=== PATIENT | male | born 1960 | race Caucasian/White ===

== ENCOUNTER 2020-05-20 20:40 | Emergency (ER) | payer OTHER, SELFPAY ==
--- NOTE | ~2020-05-20 | CT_ITS ---
EXAMINATION: CTA chest PE abdomen pel DATE: 05/20/2020 23:00 INDICATION: Chest pain. Right flank pain. TECHNIQUE: Computed tomography angiography (CTA) of the chest was performed with 100 mL Omnipaque-350 intravenous contrast timed to evaluate the pulmonary arteries. Coronal maximum intensity projection 3D-reconstructions were created by the technologist. Computed tomography (CT) of the abdomen and pelv is was performed with intravenous contrast. Automated exposure control and iterative reconstruction t echnique were employed. The dose-length product was 1848.84 mGy-cm. COMPARISON: None. FINDINGS: CTA chest: There is mild atelectasis bilaterally with a dependent predominance. There is a small righ t pleural effusion. There is a trace left pleural effusion. Calcified pulmonary nodules are consisten t with old granulomatous disease. The heart size is normal. No pericardial effusion. There are is an acute embolus in anterolateral basal segment right lower lobe. There is an acute embolus in basilar l eft lower lobe. There are old healed right rib fractures. There is mild thoracic spondylosis. CT abdomen and pelvis: The liver, gallbladder, spleen, pancreas, and right adrenal gland are normal. There is a 3.3 cm mass containing macroscopic fat in left adrenal gland, consistent with a myelolipom a. There are cysts in the kidneys measuring up to 1.3 cm on the right. The prostate is mildly enlarge d. There are no dilated loops of bowel. The appendix is normal. There are no pathologically enlarged lymph nodes. There is no free intraperitoneal fluid. There is severe lumbar spondylosis. IMPRESSION: 1. Acute pulmonary emboli in the lower lobes. I called this result to Dr. Mcclure. 2. Small right pleural effusion. Reviewed, dictated and finalized at location A. 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 Acute pulmonary emboli in the lower lobes. I called this result to Dr. Jasen edge. 2. Small right pleural effusion.
[2020-05-20 20:43] VITALS: BP 188/106; PULSE 76; RESP 16; TEMP 36.6; O2SAT 99
--- NOTE | 2020-05-20 21:46 | ECG_ITS ---
Measurements Intervals [place] Rate: 65 P: 34 OR: 186 QRS: -16 QRSD: 105 T: -3 QT: 403 QTc: 420 Interpretive Statements SINUS RHYTHM INCOMPLETE RIGHT BUNDLE BRANCH BLOCK VOLTAGE CRITERIA FOR LVH BORDERLINE T WAVE ABNORMALITY- ANT/INF LEADS BASELINE ARTIFACT- V3 BORDERLINE ECG Electronically Signed On 05-21-2020 6:28:33 [facility] by Joel Esparza D.O.
[2020-05-20] MEDS: SODIUM CHLORIDE 0.9% IV 1,000 ML 999 ML IV CONT (22:03)
[2020-05-20] MEDS: ONDANSETRON INJ 4 MG/2 ML VIAL IV PUSH (22:04)
[2020-05-20] MEDS: MORPHINE SULFATE (*CRX) 4 MG/ML INJ IV PUSH (22:04)
[2020-05-20 22:11] LABS: Basophils Absolute Auto 0.1 K/mm3 (0.0-0.1); Basophils Percent Auto 0.5 % (0.2-1.2); Eosinophils Absolute Auto 0.1 K/mm3 (0-0.3); Eosinophils Percent Auto 1.3 % (0-4.4); Hematocrit 43.9 % (42.0-52.0); Hemoglobin 15.3 g/dL (14.0-18.0); Immature Granulocyte Absolute 0.02 K/mm3 (0.00-0.031); Immature Granulocyte Percent A 0.2 % (0-0.5); Lymphocytes Absolute Auto 1.76 K/mm3 (0.9-3.2); Lymphocytes Percent Auto 19.2 % (18.3-44.2); Mean Corpuscular HGB Conc 34.9 g/dl (32-36); Mean Corpuscular Hemoglobin 31.5 pg (26-34); Mean Corpuscular Volume 90.5 fl (80-100); Mean Platelet Volume 11.7 fl (7.4-10.4); Monocytes Absolute Auto 0.9 K/mm3 (0.1-0.6); Monocytes Percent Auto 9.3 % (2.6-8.5); Neutrophils Absolute Auto 6.4 K/mm3 (1.3-6.7); Neutrophils Percent Auto 69.5 % (45.5-73.1); Platelet Count Result 189 k/mm3 (150-375); Red Blood Count 4.85 M/mm3 (4.6-6.20); Red Cell Distribution Width 12.6 % (11.5-14.5); White Blood Count 9.2 K/mm3 (4.5-10.0)
--- NOTE | 2020-05-20 22:16 | ED.GENADULT ---
HPI - General Adult General Chief complaint: Unspecified Stated complaint: right flank pain. increased on inspiration Time Seen by Provider: 05/20/20 21:33 History of Present Illness HPI narrative: Patient is a 59-year-old gentleman who presents the emergency department with chief complaint of a right sided flank pain. Patient states the pain began this evening after he had done some light exercise. Patient states the pain is sharp worse with inspiration and worse with movement. Patient states that it is in the right upper quadrant/right lower quadrant to flank area. Patient reports he has had no surgical history of his abdomen. The patient reports he has had a prior rib fracture in the past Related Data Allergies Allergy/AdvReac Type Severity Reaction Status Date / Time No Known Allergies Allergy Verified 05/20/20 20:42 Review of Systems Review of Systems: Narrative: A 10 system review of systems was completed on the patient and is negative except for what is stated in the HPI. Nursing and ancillary documentation was reviewed. PMFSH Social History Social History Gender identity (if verbalized by the patient): Male Comments Patient denies past medical history Social history patient reports that he occasionally smokes cigars Exam Narrative: Exam Narrative: GENERAL: Well-appearing, well-nourished, and in no acute distress. HEAD: Normocephalic, atraumatic. EYES: PERRLA and EOMI. ENT: Nares clear, no rhinorrhea or epistaxis. Mucous membranes moist. NECK: Supple. CHEST: Clear to auscultation. No respiratory distress. HEART: Regular rate and rhythm. No murmur heard. Normal peripheral pulses. ABDOMEN: Soft, nontender, nondistended, normal active bowel sounds. EXTREMITIES: Normal range of motion. No edema. SKIN: Warm, dry, no rash. NEURO: No focal deficits. Alert and oriented x3. PSYCH: Normal mood and affect. Course Course Emergency Course: EKG shows a sinus rhythm rate of [address] elevation or ST depression CTA of the chest and abdomen pelvis CT showed evidence of pulmonary embolus Patient did not show any evidence of right heart strain is currently hemodynamically stable the patient was given 1 mg/kg of Lovenox and the case will be discussed with the hospitalist The case was discussed with the hospitalist about admission they recommended that since the patient is currently hemodynamically stable that the patient be offered outpatient therapy with anticoagulant. In discussion with the patient he is opted for outpatient therapy at this time he was instructed for risk and benefits and the patient has chosen this option. Vital Signs Vital signs: Vital Signs Temperature 36.6 C 05/20/20 20:43 Pulse Rate 76 05/20/20 20:43 Respiratory Rate 16 05/20/20 20:43 Blood Pressure 188/106 H 05/20/20 20:43 Pulse Oximetry 99 05/20/20 20:43 Temperature 36.6 C 05/20/20 20:43 Pulse Rate 69 05/20/20 23:13 Respiratory Rate 18 05/20/20 23:13 Blood Pressure 160/88 H 05/20/20 23:13 Pulse Oximetry 99 05/20/20 23:13 Medical Decision Making Vital Signs Vital Signs: Vital Signs Temperature 36.6 C 05/20/20 20:43 Pulse Rate 76 05/20/20 20:43 Respiratory Rate 16 05/20/20 20:43 Blood Pressure 188/106 H 05/20/20 20:43 Pulse Oximetry 99 05/20/20 20:43 Temperature 36.6 C 05/20/20 20:43 Pulse Rate 69 05/20/20 23:13 Respiratory Rate 18 05/20/20 23:13 Blood Pressure 160/88 H 05/20/20 23:13 Pulse Oximetry 99 05/20/20 23:13 Lab Data Result diagrams: 05/20/20 22:02 05/20/20 22:02 Labs: Lab Results 05/20/20 05/20/20 05/20/20 Range/Units 22:02 22:02 22:02 WBC 9.2 (4.5-10.0) K/mm3 RBC 4.85 (4.6-6.20) M/mm3 Hgb 15.3 (14.0-18.0) g/dL Hct 43.9 (42.0-52.0) % MCV 90.5 (80-100) fl MCH 31.5 (26-34) pg MCHC 34.9 (32-36) g/dl RDW 12.6 (11.5-14.5) % Plt Count 189 (150-375) k/mm3 MPV 11.
[2020-05-20 22:23] LABS: Lactic Acid Reflex 1.5 mmol/L (0.7-2.1)
[2020-05-20 22:24] LABS: Alanine Aminotransferase 27 U/L (4-50); Albumin Level 3.8 g/dL (3.5-5.1); Alkaline Phosphatase 75 U/L (38-126); Anion Gap 6 mmol/L (8-16); Aspartate Amino Transferase 27 U/L (17-59); Bilirubin,Total 0.5 mg/dL (0.2-1.3); Blood Urea Nitrogen 17 mg/dL (9-20); Calcium 8.5 mg/dL (8.4-10.2); Carbon Dioxide 26 mmol/L (22-30); Chloride 109 mmol/L (98-107); D Dimer 0.57 ug/mL (<0.48); Estimated CRCL calculation 82 ml/min; Estimated Glomerular Filt Rate > 60; Glucose 105 mg/dL (75-110); Lipase 64 U/L (23-300); Magnesium 1.9 mg/dL (1.6-2.3); Potassium 3.5 mmol/L (3.4-5.0); Sodium 141 mmol/L (137-145)
[2020-05-20 22:35] LABS: Troponin I < 0.012 ng/mL (0.000-0.034)
[2020-05-20 23:13] VITALS: BP 160/88; PULSE 69; RESP 18; O2SAT 99
[2020-05-20] MEDS: ENOXAPARIN 100 MG/ML SYRINGE SUB-Q (23:48)
[2020-05-21 00:27] VITALS: BP 156/98; PULSE 70; RESP 18; O2SAT 98
== END 2020-05-21 00:35 | disposition home or self-care (01) ==
PROVIDERS: Emergency Provider Emergency Medicine; PCP Emergency Medicine
DX: I26.99 Other pulmonary embolism without acute cor pulmonale (principal); I45.10 Unspecified right bundle-branch block; R94.31 Abnormal electrocardiogram [ECG] [EKG]
CPT/HCPCS: 36415; 71275; 74177; 80053; 83605; 83690; 83735; 84484; 85025; 85380; 93005; 96361; 96372; 96374; 96375; 99284; J1650; J2270; J2405; J7030; Q9967

== ENCOUNTER 2020-06-14 07:26 | Outpatient (CLI) | payer OTHER, SELFPAY ==
--- NOTE | ~2020-06-14 | US_ITS ---
EXAMINATION: US venous doppler [facility] DATE: 06/14/2020 08:09 INDICATION: Pulmonary embolism TECHNIQUE: Grayscale ultrasound images without and with compression and Doppler ultrasound images of the bilateral lower extremity veins were obtained. COMPARISON: None. FINDINGS: The visualized portions of right common femoral vein, profunda (deep) femoral vein, femoral vein, pop liteal vein, posterior tibial veins, peroneal veins, gastrocnemius vein and greater saphenous vein ou tflow are patent. The visualized portions of left common femoral vein, profunda femoral vein, femoral vein, popliteal v ein, posterior tibial veins, peroneal veins, gastrocnemius vein and greater saphenous vein outflow ar e patent. IMPRESSION: 1. No deep venous thrombosis in either lower limb. Reviewed, dictated and finalized at location B.
== END 2020-06-14 07:27 | disposition home or self-care (01) ==
LOC: ANHIMG 07:29
PROVIDERS: PCP Emergency Medicine; Visit Provider Emergency Medicine
DX: I26.99 Other pulmonary embolism without acute cor pulmonale (principal)
CPT/HCPCS: 93970

== ENCOUNTER 2021-12-28 08:47 | Observation (INO) | payer OTHER, SELFPAY ==
--- NOTE | ~2021-12-28 | CT_ITS ---
EXAMINATION: CT abdomen pelvis wo/w con DATE: 12/28/2021 20:29 INDICATION: Hematuria TECHNIQUE: Computed tomography (CT) of the abdomen and pelvis was performed without and with 130 cc O mnipaque 350 intravenous contrast. The dose-length product was 2691.68 mGy-cm. Automated exposure con trol and iterative reconstruction technique were employed. COMPARISON: CT dated 05/20/2019 lung bases are unremarkable. FINDINGS: Lung bases are unremarkable. Heart size normal. No significant pleural or pericardial effus ion. No significant vascular abnormality. There is mild atherosclerosis. No aneurysm. No renal/ureter al stone or hydronephrosis. There is a 1.3 cm right renal cysts. Bladder is unremarkable. There is a small subcentimeter hypodensity of the left kidney, most likely benign. Ureters are normal in course and caliber. The bladder is unremarkable. Prostate gland is enlarged. No acute osseous abnormality. 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 There is an accessory splenule. No acute osseous abnormality. No lytic or blastic lesions. Th ere is a healed right lateral rib fracture. IMPRESSION: 1. No acute abdominal abnormality. No evidence for urolithiasis or hydronephrosis. Reviewed, dictated and finalized at location A. IMPRESSION: 1. No acute abdominal abnormality. No evidence for urolithiasis or hydronephros is.
[2021-12-28 09:01] VITALS: BP 141/81; PULSE 70; RESP 16; TEMP 36.5; O2SAT 98
--- NOTE | 2021-12-28 09:05 | ED.MALEGU ---
HPI - Male Genitourinary General Chief complaint: Urogenital-Male Stated complaint: Bleeding From Penis Time Seen by Provider: 12/28/21 08:50 History of Present Illness HPI Narrative: Patient is a 61-year-old male who presents ER due to concern for penile injury. He was having intercourse with his this morning when he felt a pop. He then had blood draining out of his urethral meatus that was persistent. He reports it looked like he was urinating blood. Bleeding has decreased and he has had normal-appearing urination since then. He has some swelling around the tip of his penis. No deformity/tenderness/bruising to the penile shaft. No scrotal pain. Related Data Home Medications Medication Instructions Recorded Confirmed amlodipine 10 mg tablet 10 mg PO DAILY 12/28/21 12/28/21 finasteride 5 mg tablet 5 mg PO DAILY 12/28/21 12/28/21 irbesartan 150 150 tablet PO DAILY 12/28/21 12/28/21 mg-hydrochlorothiazide 12.5 mg tablet rivaroxaban 15 mg (42)-20 mg (9) 20 PO DAILY 12/28/21 tablets in a starter pack (Xarelto DVT-PE Treatment 30-Day Starter) rosuvastatin 10 mg tablet 10 mg PO DAILY 12/28/21 12/28/21 Allergies Allergy/AdvReac Type Severity Reaction Status Date / Time No Known Allergies Allergy Verified 05/20/20 20:42 Review of Systems Gastrointestinal: Gastrointestinal: Denies abdominal pain, Denies nausea and Denies vomiting Genitourinary: Genitourinary: Reports hematuria, Denies oliguria, Denies dysuria, Denies penile discharge and Denies testicular pain [facility] Past Medical History Medical History (Updated 12/28/21 @ 19:08 by Rui Salazar MD) Benign neoplasm of adrenal gland BPH (benign prostatic hyperplasia) Hypercholesterolemia Hypertension Pulmonary embolism Surgical History Surgical History H/O colonoscopy with polypectomy H/O cystoscopy History of removal of pigmented skin lesion Family History Family History Father Heart disease Hypertension Cancer Mother Acute leukemia Sibling Heart disease Social History Social History (Updated 12/28/21 @ 13:42 by Nubia Coppola NP) Social History: The patient lives with his and she is the poa. They have 2 children. 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 He occasionally smokes a cigar. He occasionally has an alcoholic beverage. He smokes marijuana on the weekend. Code status full code Smoking status: Never smoker Alcohol intake: current Drinks per week: 3 Substance use: current Substance use type: marijuana Last use: 12/27/2021 Gender identity (if verbalized by the patient): Male Spiritual care concerns: No Exam Narrative: GENERAL: Well-appearing, well-nourished, and in no acute distress. HEAD: Normocephalic, atraumatic. ABDOMEN: Soft, nontender, nondistended. : Penis with hematoma around the urethral meatus midline left side. No discharge or blood at this time. No tenderness or deformity to the penile shaft or scrotum. EXTREMITIES: Normal range of motion. No edema. SKIN: Warm, dry, no rash. NEURO: Alert and oriented x3. PSYCH: Normal mood and affect. Course Reevaluation(s) Reevaluation #1: Discussed case with Dr. Olmedo, he is on his way to the hospital and will evaluate the patient in the ER. Date: 12/28/21 Time: 09:48 Reevaluation #2: Urology recommends admission for observation and then scope and urethrogram tomorrow. Patient may need to be n.p.o. at midnight. He still continues to have some blood draining from the area. Hold Xarelto. Urology recommends admission to hospital service. Date: 12/28/21 Time: 11:38 Vital Signs Vital signs: Vital Signs Temperature 97.7 F 12/28/21 09:01 Pulse Rate 70 12/28/21 09:01 Respiratory Rate 16 12/28/21 09:01 Blood Pressure 141/81 H 12/28/21 09:01 Pulse Oximetry 98 12/28/21 09:01 Oxygen Delivery R
[2021-12-28 09:20] LABS: Appearance Urine Clear (Clear); Bilirubin Urine Negative (Negative); Blood Urine 2+ (Negative); Color Urine Yellow (Yellow); Glucose Urine UA Negative (Negative); Ketones Urine Negative (Negative); Leukocyte Esterase Ur Negative LEU/UL (Negative); Nitrate Urine Negative (Negative); Protein Urine Negative (Negative); Specific Grav Ur 1.015 (1.001-1.035); Urobilinogen Urine 0.2 mg/dL (<2.0); pH Urine 7.5 (5.0-9.0)
[2021-12-28 09:22] LABS: Mucus Urine Rare /lpf; RBC Urine >75 /hpf (0-2); WBC Urine 0-3 /hpf
[2021-12-28 09:24] LABS: Add Urine Microscopic? YES
[2021-12-28 11:56] LABS: Basophils Absolute Auto 0.1 K/mm3 (0.0-0.1); Eosinophils Absolute Auto 0.1 K/mm3 (0-0.3); Hematocrit 45.7 % (42.0-52.0); Hemoglobin 16.1 g/dL (14.0-18.0); Immature Granulocyte Absolute 0.01 K/mm3 (0.00-0.031); Immature Granulocyte Percent A 0.2 % (0-0.5); Lymphocytes Absolute Auto 1.56 K/mm3 (0.9-3.2); Lymphocytes Percent Auto 25.3 % (18.3-44.2); Mean Corpuscular HGB Conc 35.2 g/dl (32-36); Mean Corpuscular Hemoglobin 32.1 pg (26-34); Mean Corpuscular Volume 91.2 fl (80-100); Mean Platelet Volume 10.9 fl (7.4-10.4); Monocytes Absolute Auto 0.5 K/mm3 (0.1-0.6); Monocytes Percent Auto 7.6 % (2.6-8.5); Neutrophils Percent Auto 64.9 % (45.5-73.1); Platelet Count Result 195 k/mm3 (150-375); Red Blood Count 5.01 M/mm3 (4.6-6.20); Red Cell Distribution Width 12.7 % (11.5-14.5); White Blood Count 6.2 K/mm3 (4.5-10.0)
[2021-12-28 12:08] LABS: Anion Gap 5 mmol/L (8-16); Blood Urea Nitrogen 16 mg/dL (9-20); Calcium 8.8 mg/dL (8.4-10.2); Carbon Dioxide 28 mmol/L (22-30); Chloride 107 mmol/L (98-107); Estimated CRCL calculation 96 ml/min; Estimated Glomerular Filt Rate > 60; Glucose 94 mg/dL (65-110); INR 1.1; Potassium 4.2 mmol/L (3.4-5.0); Prothrombin Time 13.4 Seconds (11.1-14.7); Sodium 140 mmol/L (137-145)
[2021-12-28 12:12] VITALS: BP 131/83; PULSE 58; RESP 18; O2SAT 98
--- NOTE | 2021-12-28 12:39 | PM.IMHP ---
H&P: HPI History of Present Illness Date/Time: 12/28/21 12:39 Chief Complaint: Bleeding from his penis Narrative: This is a 61-year-old male patient who has a history of BPH and PE. The patient has been on Xarelto. The patient came into the emergency room today due to concerns for penile injury. The patient was having intercourse with his this morning when he felt a pop. The patient then noticed blood draining out of his urethral meatus and it was persistent. It looks like he had been urinating blood. He has no deformity or tenderness or bruising to the penile shaft. No scrotal pain. Urology has been consulted and has already seen the patient. The patient stated that he had a cystoscopy approximately 1 month ago because he was having blood in his semen. He stated that he has not heard of any abnormalities from that cystoscopy. The patient has been on Xarelto for 2 years due to a PE. The patient stated since he has been to the emergency room now his bleeding has stopped. His H&H is normal. He had 2+ urine blood and urine rbc's is greater than 75. The patient is being admitted for observation status on the date of service of 12/28/2021. Review of Systems Review of Systems: See HPI All systems reviewed & are unremarkable except as noted in HPI and below Constitutional: Constitutional: Reports as per HPI and Reports no additional constitutional complaints Eyes: Eyes: Reports as per HPI and Reports no additional eye complaints ENT: Reports system reviewed and no additional complaints, except as documented and Reports Normal hearing present Cardiovascular: Cardiovascular: Reports no additional cardiovascular complaints Respiratory: Respiratory: Reports no additional respiratory complaints and Reports no additional respiratory complaints Gastrointestinal: Gastrointestinal: Reports as per HPI and Reports no additional gastrointestinal complaints Musculoskeletal: Musculoskeletal: Reports no additional musculoskeletal complaints Integumentary/Breasts: Skin/Breast: Reports system reviewed and no additional complaints, except as docu and Reports as per HPI Neurologic: Reports system reviewed and no additional complaints, except as documented, Reports as per HPI and Reports Normal hearing present Psychiatric: Psychiatric: Reports no additional psychiatric complaints and Reports as per HPI Endocrine: Endocrine: Reports no additional endocrine complaints Hematologic/Lymphatic: Hematologic/Lymphatic: Reports no additional hematologic/lymphatic complaints Allergic/Immunologic: Allergic/Immunologic: Reports no additional allergic/immunologic complaints [facility] Past Medical History Medical History (Updated 12/28/21 @ 14:07 by Nubia Coppola NP) Benign neoplasm of adrenal gland BPH (benign prostatic hyperplasia) Hypercholesterolemia Hypertension Pulmonary embolism Surgical History Surgical History H/O colonoscopy with polypectomy H/O cystoscopy History of removal of pigmented skin lesion Family History Family History Father Heart disease Hypertension Cancer Mother Acute leukemia Sibling Heart disease Social History Social History (Updated 12/28/21 @ 13:42 by Nubia Coppola NP) Social History: The patient lives with his and she is the poa. They have 2 children. 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 He occasionally smokes a cigar. He occasionally has an alcoholic beverage. He smokes marijuana on the weekend. Code status full code Smoking status: Never smoker Alcohol intake: current Drinks per week: 3 Substance use: current Substance use type: marijuana Last use: 12/27/2021 Gender identity (if verbalized by the patient): Male Spiritual care concerns: No Meds Home Medications and Allergies Home Medications Medication Instructions Recorded Co
[2021-12-28 13:15] VITALS: BP 124/77; PULSE 79; RESP 14; O2SAT 99
[2021-12-28 14:54] LABS: Hematocrit 41.9 % (42.0-52.0); Hemoglobin 14.7 g/dL (14.0-18.0)
--- NOTE | 2021-12-28 18:45 | WPDURCON ---
Assessment and Plan Assessment and plan (1) BPH (benign prostatic hyperplasia): Code(s): N40.0 - Benign prostatic hyperplasia without lower urinary tract symptoms Status: Acute (2) Gross hematuria: Code(s): R31.0 - Gross hematuria Status: Acute Assessment and Plan: gross hematuria and bleeding after intercourse. exam with urethral ecchymosis at the meatus No sign of penile fracture. ? meatal laceration from sexual trauma. no ecchymosis or swelling in penile shaft or scrotum or perineum to suggest a more significant injury plan for CT -U and cystoscopy- may need pierson catheter and retrograde urethrogram hold anticoagulation for now. he is voiding well as of now. 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 He presented to the ER with gross blood after intercourse. He was transferred via EMS. Denies rapid detumescence or striking pubic bone. No prior hx of GH, he has a hx of BPH and prior hematospermia. Sees Dr Aparicio. Denies gross clots. On arrival to ER bleeding stopped. He is voiding weell. He ate breakfast and had orange juice. No pain currently. Feels like he is able to empty bladder normally. Review of Systems Constitutional: Constitutional: Denies body ache(s) and Denies chills Eyes: Eyes: Reports no additional eye complaints ENT: Reports Normal hearing present and Denies bleeding gums Cardiovascular: Cardiovascular: Reports no additional cardiovascular complaints Respiratory: Respiratory: Reports no additional respiratory complaints Gastrointestinal: Gastrointestinal: Reports no additional gastrointestinal complaints Genitourinary: Genitourinary: Reports no additional male genitourinary complaints Musculoskeletal: Musculoskeletal: Reports no additional musculoskeletal complaints Integumentary/Breasts: Skin/Breast: Reports system reviewed and no additional complaints, except as docu Neurologic: Reports system reviewed and no additional complaints, except as documented Psychiatric: Psychiatric: Reports no additional psychiatric complaints Endocrine: Endocrine: Reports no additional endocrine complaints Hematologic/Lymphatic: Hematologic/Lymphatic: Reports easy bruising Allergic/Immunologic: Allergic/Immunologic: Reports no additional allergic/immunologic complaints [facility] Past Medical History Medical History (Updated 12/28/21 @ 18:53 by Parrish Olmedo MD) Benign neoplasm of adrenal gland BPH (benign prostatic hyperplasia) Hypercholesterolemia Hypertension Pulmonary embolism Surgical History Surgical History H/O colonoscopy with polypectomy H/O cystoscopy History of removal of pigmented skin lesion Family History Family History Father Heart disease Hypertension Cancer Mother Acute leukemia Sibling Heart disease Social History Social History (Updated 12/28/21 @ 13:42 by Nubia Coppola NP) Social History: The patient lives with his and she is the poa. They have 2 children. 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 He occasionally smokes a cigar. He occasionally has an alcoholic beverage. He smokes marijuana on the weekend. Code status full code Smoking status: Never smoker Alcohol intake: current Drinks per week: 3 Substance use: current Substance use type: marijuana Last use: 12/27/2021 Gender identity (if verbalized by the patient): Male Spiritual care concerns: No Meds Home Medications and Allergies Home Medications Medication Instructions Recorded Confirmed Type amlodipine 10 mg tablet 10 mg PO DAILY 12/28/21 12/28/21 History finasteride 5 mg tablet 5 mg PO DA
[2021-12-28 20:00] VITALS: PULSE 62; RESP 16; O2SAT 98
[2021-12-28 21:24] LABS: Hematocrit 40.6 % (42.0-52.0); Hemoglobin 14.1 g/dL (14.0-18.0)
[2021-12-28 22:00] VITALS: BP 120/80; PULSE 62; RESP 16; TEMP 36.3; O2SAT 98
[2021-12-29 02:41] LABS: Basophils Absolute Auto 0.1 K/mm3 (0.0-0.1); Basophils Percent Auto 1.1 % (0.2-1.2); Eosinophils Absolute Auto 0.1 K/mm3 (0-0.3); Eosinophils Percent Auto 1.9 % (0-4.4); Hematocrit 39.1 % (42.0-52.0); Hematocrit 39.5 % (42.0-52.0); Hemoglobin 13.7 g/dL (14.0-18.0); Hemoglobin 13.8 g/dL (14.0-18.0); Immature Granulocyte Absolute 0.01 K/mm3 (0.00-0.031); Immature Granulocyte Percent A 0.2 % (0-0.5); Lymphocytes Absolute Auto 2.07 K/mm3 (0.9-3.2); Lymphocytes Percent Auto 36.5 % (18.3-44.2); Mean Corpuscular HGB Conc 34.9 g/dl (32-36); Mean Corpuscular Hemoglobin 32.1 pg (26-34); Mean Corpuscular Volume 91.9 fl (80-100); Mean Platelet Volume 10.9 fl (7.4-10.4); Monocytes Absolute Auto 0.5 K/mm3 (0.1-0.6); Monocytes Percent Auto 8.6 % (2.6-8.5); Neutrophils Absolute Auto 2.9 K/mm3 (1.3-6.7); Neutrophils Percent Auto 51.7 % (45.5-73.1); Platelet Count Result 177 k/mm3 (150-375); Red Cell Distribution Width 12.8 % (11.5-14.5); White Blood Count 5.7 K/mm3 (4.5-10.0)
[2021-12-29 02:58] LABS: Alanine Aminotransferase 36 U/L (6-50); Albumin Level 3.5 g/dL (3.5-5.1); Alkaline Phosphatase 65 U/L (38-126); Anion Gap 5 mmol/L (8-16); Aspartate Amino Transferase 25 U/L (17-59); Bilirubin,Total 0.6 mg/dL (0.2-1.3); Blood Urea Nitrogen 17 mg/dL (9-20); Calcium 8.1 mg/dL (8.4-10.2); Carbon Dioxide 24 mmol/L (22-30); Chloride 110 mmol/L (98-107); Estimated CRCL calculation 96 ml/min; Estimated Glomerular Filt Rate > 60; Glucose 101 mg/dL (65-110); Magnesium 2.1 mg/dL (1.6-2.3); Phosphorus 3.3 mg/dL (2.5-4.5); Potassium 3.6 mmol/L (3.4-5.0); Sodium 139 mmol/L (137-145)
[2021-12-29 06:00] VITALS: BP 117/82; PULSE 65; RESP 14; TEMP 36.9; O2SAT 99
--- NOTE | 2021-12-29 06:38 | WPDUROPN2 ---
Progress Note: A&P Assessment and Plan (1) Hematuria: Code(s): R31.9 - Hematuria, unspecified Status: Acute Assessment and Plan: Hematuria/urethral bleeding has resolved Scant ecchymosis at glans tip without evidence of urethral or corporal injury. Discharge today / no need for cystoscopy. Avoid sexual activity x2 weeks. F/U: 3-4 weeks. (2) Penis injury: Code(s): S39.94XA - Unspecified injury of external genitals, initial encounter Status: Acute Subjective Subjective Date/Time Seen: 12/29/21 06:38 Comfortable, no complaints Review of Systems Cardiovascular: Cardiovascular: Denies chest pain, Denies lightheadedness, Denies palpitations and Denies dyspnea Respiratory: Respiratory: Denies dyspnea Gastrointestinal: Gastrointestinal: Denies diarrhea, Denies nausea and Denies vomiting Genitourinary: Genitourinary: Denies hematuria and Denies dysuria Endocrine: Endocrine: Denies palpitations Exam Const: General: no acute distress Resp: Effort & Inspection: normal respiratory effort GI: Inspection: non-distended GI Palp: No abdominal tenderness and No Guarding due to palpation present (GI) Auscultation: normal bowel sounds : Penis: Yes ecchymosis (scant at tip of glans) Objective Data Vital Signs Vital Signs: Vital Signs - 24 hr 12/28/21 09:01 12/28/21 12:12 12/28/21 13:15 Temperature 97.7 F Pulse Rate 70 58 L 79 Respiratory Rate 16 18 14 Blood Pressure 141/81 H 131/83 124/77 Pulse Oximetry 98 98 99 Oxygen Delivery Room Air 12/28/21 22:00 12/28/21 20:00 12/29/21 06:00 Temperature 97.3 F L 98.5 F Pulse Rate 62 62 65 Respiratory Rate 16 16 14 Blood Pressure 120/80 117/82 Pulse Oximetry 98 98 99 Oxygen Delivery Room Air Intake/Output Intake/Output: Intake & Output 12/26/21 12/27/21 12/28/21 12/29/21 23:59 23:59 23:59 23:59 Intake Total 0 Output Total 850 Balance -850 Meds/Results Medications: Active Medications Generic Name Dose Route Start Last Admin Trade Name Freq PRN Reason Stop Dose Admin Acetaminophen 650 mg 12/28/21 12:41 Acetaminophen 325 Mg Tablet PO Q4H PRN Mild Pain (1-3) or Fever Hydrocodone Bitart/Acetaminophen 1 tab 12/28/21 12:41 Hydrocodone/Acetaminophen (*Crx) 5-325 Mg Tablet PO Q4H PRN Pain Rated 4-6 Amlodipine Besylate 10 mg 12/29/21 09:00 Amlodipine Besylate 5 Mg Tablet PO DAILY [facility] Finasteride 5 mg 12/29/21 09:00 Finasteride 5 Mg Tablet PO DAILY [facility] Hydrochlorothiazide 12.5 mg 12/29/21 09:00 Hydrochlorothiazide 12.5 Mg Capsule PO 01/28/22 08:59 DAILY [facility] Irbesartan 150 mg 12/29/21 09:00 Irbesartan 150 Mg Tablet PO 01/28/22 08:59 DAILY [facility] Morphine Sulfate 4 mg 12/28/21 12:41 Morphine Sulfate (*Crx) 4 Mg/Ml Inj IV PUSH Q2H PRN Pain Rated 7-10 Ondansetron HCl 4 mg 12/28/21 12:41 Ondansetron Inj 4 Mg/2 Ml Vial IV PUSH Q4H PRN Nausea Rosuvastatin Calcium 10 mg 12/29/21 09:00 Rosuvastatin 10 Mg Tablet PO DAILY [facility] Labs Labs: Laboratory Results - last 24 hr 12/28/21 12/28/21 12/28/21 09:07 11:45 11:45 WBC 6.2 RBC 5.01 Hgb 16.1 Hct 45.7 MCV 91.2 MCH 32.1 MCHC 35.2 RDW 12.7 Plt Count 195 MPV 10.9 H Immature Gran % (Auto) 0.2 Neut % (Auto) 64.9 Lymph % (Auto) 25.3 [place] % (Auto) 7.6 Eos % (Auto) 1.0 Baso % (Auto) 1.0 Lymph # (Auto) 1.56 [place] # (Auto) 0.5 Eos # (Auto) 0.1 Baso # (Auto) 0.1 Abs Immat Gran (auto) 0.01 Absolute Neuts (auto) 4.0 Absolute Nucleated RBC 0.0 Nucleated RBC % 0.0 PT 13.4 INR 1.1 APTT 29.0 Sodium Potassium Chloride Carbon Dioxide Anion Gap BUN Creatinine Estim Creat Clear Calc Estimated GFR Glucose Calcium Phosphorus Magnesium Ferritin Total Bilirubin AST ALT Alkaline Phosphatase
[2021-12-29] MEDS: hydroCHLOROthiazide 12.5 MG CAPSULE PO (08:07)
[2021-12-29] MEDS: IRBESARTAN 150 MG TABLET PO (08:07)
[2021-12-29] MEDS: amLODIPine BESYLATE 5 MG TABLET 10 MG PO (08:08)
[2021-12-29] MEDS: ROSUVASTATIN 10 MG TABLET PO (08:08)
[2021-12-29] MEDS: FINASTERIDE 5 MG TABLET PO (08:08)
[2021-12-29 08:59] LABS: Hemoglobin 14.6 g/dL (14.0-18.0)
--- NOTE | 2021-12-29 13:52 | PM.DS ---
DS: Admitting Diagnosis Discharge Date 12/29/21 Admitting Diagnosis Hematuria DS: Discharge Diagnosis Discharge Diagnosis (1) Gross hematuria: Code(s): R31.0 - Gross hematuria Status: Acute (2) Penis injury: Code(s): S39.94XA - Unspecified injury of external genitals, initial encounter Status: Acute (3) Pulmonary embolism: Code(s): I26.99 - Other pulmonary embolism without acute cor pulmonale Status: Acute (4) Hypertension: Code(s): I10 - Essential (primary) hypertension Status: Acute (5) BPH (benign prostatic hyperplasia): Code(s): N40.0 - Benign prostatic hyperplasia without lower urinary tract symptoms Status: Acute (6) Hypercholesterolemia: Code(s): E78.00 - Pure hypercholesterolemia, unspecified Status: Acute (7) Benign neoplasm of adrenal gland: Code(s): D35.00 - Benign neoplasm of unspecified adrenal gland Status: Acute DS: Summary Hospital Course Reason for hospitalization: 61yo male on anticoagulation for PE and BPH here for hematuria. Please see H&P for details. Hospital Course: Patient felt a pop after having intercourse. Patient noted blood draining from ureteral meatus which prompted the presentation. CBC was normal. Hemoglobin remained within normal limits. CMP was normal. PT and PTT was normal. Urinalysis showed 2+ blood and greater than [address] of the abdomen pelvis with and without contrast showed no acute abdominal abnormalities. No evidence of urolithiasis or hydronephrosis. There was a 3.3 cm left adrenal mass most likely a benign adrenal myelolipoma. Urology was consulted. Patient's bleeding stopped on its own. He is voiding normally. Overall did well and was able to be discharged home on 12/29/2021. He will follow-up with urology in 3-4 weeks. I did speak with the patient about anticoagulation. Recommended that he continue his current treatment but that he should discuss with his doctor about may be stepping down the dose to a prophylactic dose. Also recommend that he start exercise program since there was a question that the PE may been related to inactivity. All questions were answered. Status at Discharge Cognitive/behavioral status at discharge: Stable Time Spent with Patient Time attestation: Total time spent providing and/or coordinating discharge services: 35 minutes Time spent: Greater than 30 minutes Exam Narrative: AF 98.5 117/82 65 14 99% ra Gen - NARD Chest - CTA bilaterally, nml RR CV - RRR S1/S2 Abd - Soft, NT/ND, Positive BS - small amount of bruising around the meatus. Ext - No pedal edema Psych - Nml mood and affect Skin - Warm and dry DS: Data Data Completed and Pending Labs on day of discharge: Labs from last 24 hours 12/29/21 12/29/21 12/29/21 08:35 02:36 02:36 WBC RBC Hgb 14.6 Hct 42.0 MCV MCH MCHC RDW Plt Count MPV Immature Gran % (Auto) Neut % (Auto) Lymph % (Auto) [place] % (Auto) Eos % (Auto) Baso % (Auto) Lymph # (Auto) [place] # (Auto) Eos # (Auto) Baso # (Auto) Abs Immat Gran (auto) Absolute Neuts (auto) Absolute Nucleated RBC Nucleated RBC % Sodium 139 Potassium 3.6 Chloride 110 H Carbon Dioxide 24 Anion Gap 5 L BUN 17 Creatinine 0.80 Estim Creat Clear Calc 96 Estimated GFR > 60 Glucose 101 Calcium 8.1 L Phosphorus 3.3 Magnesium 2.1 Ferritin 70.80 Total Bilirubin 0.6 AST 25 ALT 36 Alkaline Phosphatase 65 Total Protein 6.0 L Albumin 3.5 12/29/21 12/29/21 12/28/21 02:36 02:36 21:20 WBC 5.7 RBC 4.30 L Hgb 13.8 L 13.7 L 14.1 Hct 39.5 L 39.1 L 40.6 L MCV 91.9 MCH 32.1 MCHC 34.9 RDW 12.8 Plt Count 177 MPV 10.9 H Immature Gran % (Auto) 0.2 Neut % (Auto) 51.7 Lymph % (Auto) 36.5 [place] % (Auto) 8.6 H Eos % (Auto) 1.9
[2021-12-29 14:00] VITALS: BP 120/79; PULSE 56; RESP 16; TEMP 36.7; O2SAT 97
== END 2021-12-29 14:55 | disposition home or self-care (01) ==
LOC: ANHED 09:43 → ANH3MEDSUR 19:08
PROVIDERS: Nurse Practitioner; Admitting Provider Family Medicine; Emergency Provider Emergency Medicine; PCP Emergency Medicine; Visit Provider Internal Medicine
DX: S39.848A Other specified injuries of external genitals, initial encounter (principal); N48.89 Other specified disorders of penis; T14.90XA Injury, unspecified, initial encounter; R31.0 Gross hematuria; I10 Essential (primary) hypertension; E78.00 Pure hypercholesterolemia, unspecified; Z86.711 Personal history of pulmonary embolism; Z79.01 Long term (current) use of anticoagulants; N40.0 Benign prostatic hyperplasia without lower urinary tract symptoms; D35.00 Benign neoplasm of unspecified adrenal gland
CPT/HCPCS: 36415; 74178; 80048; 80053; 81001; 82728; 83735; 84100; 85014; 85018; 85025; 85610; 85730; 99285; A9270; G0378; Q9967

== ENCOUNTER 2023-01-15 01:33 | Day surgery (SDC) | payer OTHER, SELFPAY ==
[2023-01-08 15:04] VITALS: BMI 30.2
[2023-01-15 08:40] VITALS: BP 122/76; PULSE 60; RESP 18; TEMP 36.2; O2SAT 100
[2023-01-15] MEDS: LACTATED RINGERS 1,000 ML 150 ML IV CONT (08:54)
--- NOTE | 2023-01-15 09:10 | PM.HPGS ---
History of Present Illness History of Present Illness Consent: Risks, benefits, and alternatives have been discussed and questions answered. Patient agrees to proceed with procedure. Chief complaint: Personal hx of colon polyps Narrative: Praveen Le is a 62 year old male with colon polyp 5 years ago Review of Systems Constitutional: Constitutional: Denies headache(s) and Denies weakness Eyes: Eyes: Denies blurry vision ENT: Reports Normal hearing present, Denies headache(s) and Denies neck pain Cardiovascular: Cardiovascular: Denies chest pain and Denies dyspnea Respiratory: Respiratory: Denies dyspnea Gastrointestinal: Gastrointestinal: Reports no additional gastrointestinal complaints Genitourinary: Genitourinary: Denies dysuria Musculoskeletal: Musculoskeletal: Denies neck pain Integumentary/Breasts: Skin/Breast: Denies dry skin Neurologic: Reports Normal hearing present, Denies headache(s) and Denies weakness Psychiatric: Psychiatric: Denies anxiety Endocrine: Endocrine: Denies change in body appearance Hematologic/Lymphatic: Hematologic/Lymphatic: Denies easy bleeding Allergic/Immunologic: Allergic/Immunologic: Denies urticaria PMFSH Past Medical History Medical History (Updated 01/15/23 @ 09:11 by Vinny Velez MD) Benign neoplasm of adrenal gland BPH (benign prostatic hyperplasia) Colon polyp Hypercholesterolemia Hypertension Pulmonary embolism Surgical History Surgical History H/O colonoscopy with polypectomy H/O cystoscopy History of removal of pigmented skin lesion Family History Family History Father Heart disease Hypertension Cancer Mother Acute leukemia Sibling Heart disease Social History Social History (Updated 12/28/21 @ 13:42 by Nubia Coppola NP) Social History: The patient lives with his and she is the poa. They have 2 children. 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 He occasionally smokes a cigar. He occasionally has an alcoholic beverage. He smokes marijuana on the weekend. Code status full code Smoking status: Never smoker Alcohol intake: current Drinks per week: 3 Alcohol use details: DRINKS Substance use: current Substance use type: marijuana Last use: 12/27/2021 Living arrangements: with family Gender identity (if verbalized by the patient): Male Spiritual care concerns: No Meds Home Medications and Allergies Home Medications Medication Instructions Recorded Confirmed Type amlodipine 10 mg tablet 10 mg PO DAILY 12/28/21 01/15/23 History finasteride 5 mg tablet 5 mg PO DAILY 12/28/21 01/15/23 History irbesartan 150 150 tablet PO DAILY 12/28/21 01/15/23 History mg-hydrochlorothiazide 12.5 mg tablet rosuvastatin 10 mg tablet 10 mg PO DAILY 12/28/21 01/15/23 History rivaroxaban 20 mg tablet (Xarelto) 20 mg PO DAILY 01/08/23 01/15/23 History Allergies Allergy/AdvReac Type Severity Reaction Status Date / Time No Known Allergies Allergy Verified 01/15/23 08:37 Vital Signs Vital Signs - 24 hr 01/15/23 08:40 Temperature 97.1 F L Pulse Rate 60 Respiratory Rate 18 Blood Pressure 122/76 Pulse Oximetry 100 Oxygen Delivery Room Air Exam Const: General: comfortable and no acute distress HENMT: Face/Nose/Sinus: Normal nares present Eyes: General: appearance normal, both eyes and all related structures Neck: Neck: no JVD Resp: Auscultation: clear to auscultation bilaterally Cardio: Rate: regular rate Rhythm: regular rhythm GI: Inspection: non-distended GI Palp: Yes Soft to palpation Skin: General skin exam: normal color Neuro: General: gait normal Speech: normal speech Extrem: General: normal to inspection Psych: Mental Status: mental status grossly normal Assessment and Plan Assessment and plan (1) Colon polyp: Co
--- NOTE | 2023-01-15 09:12 | WPDANESEPPF ---
Anes - Initial Pre Proc Eval Procedure: Operation Date: 01/15/23 09:30 Proposed Procedures p Colonoscopy - Vinny Velez MD Date/Time: 01/15/23 09:12 Surgeon: Vinny Velez MD Pre Op Diagnosis: Personal hx of colon polyps Patient Data Age: 62 Gender: M Height: 1.88 m Weight: 106.3 kg Last Vital Signs Temp 97.1 F L 01/15/23 08:40 Pulse 60 01/15/23 08:40 Resp 18 01/15/23 08:40 BP 122/76 01/15/23 08:40 Pulse Ox 100 01/15/23 08:40 O2 Del Method Room Air 01/15/23 08:40 Allergies Allergy/AdvReac Type Severity Reaction Status Date / Time No Known Allergies Allergy Verified 01/15/23 08:37 Home Medications Medication Instructions Recorded Confirmed Type amlodipine 10 mg tablet 10 mg PO DAILY 12/28/21 01/15/23 History finasteride 5 mg tablet 5 mg PO DAILY 12/28/21 01/15/23 History irbesartan 150 150 tablet PO DAILY 12/28/21 01/15/23 History mg-hydrochlorothiazide 12.5 mg tablet rosuvastatin 10 mg tablet 10 mg PO DAILY 12/28/21 01/15/23 History rivaroxaban 20 mg tablet (Xarelto) 20 mg PO DAILY 01/08/23 01/15/23 History Patient hx anesthesia problems: none Family hx anesthesia problems: none Results Review: All pre-operative results and documents have been reviewed as part of the pre-operative evaluation. ON LICENSE OF [facility] Past Medical History Medical History (Updated 01/15/23 @ 09:11 by Vinny Velez MD) Benign neoplasm of adrenal gland BPH (benign prostatic hyperplasia) Colon polyp Hypercholesterolemia Hypertension Pulmonary embolism Surgical History Surgical History H/O colonoscopy with polypectomy H/O cystoscopy History of removal of pigmented skin lesion Family History Family History Father Heart disease Hypertension Cancer Mother Acute leukemia Sibling Heart disease Social History Social History (Updated 12/28/21 @ 13:42 by Nubia Coppola NP) Social History: The patient lives with his and she is the poa. They have 2 children. 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 He occasionally smokes a cigar. He occasionally has an alcoholic beverage. He smokes marijuana on the weekend. Code status full code Smoking status: Never smoker Alcohol intake: current Drinks per week: 3 Alcohol use details: DRINKS Substance use: current Substance use type: marijuana Last use: 12/27/2021 Living arrangements: with family Gender identity (if verbalized by the patient): Male Spiritual care concerns: No Anes - Eval Final PreProcedure Day of Procedure 01/15/23 09:12 Patient weight: obese Heart: regular rate and rhythm Lungs: clear to auscultation Airway: Mallampati scale class II Neurological: alert and oriented Last oral intake: >/= 8 hours ASA classification: III Emergent: no Anesthetic plan: proceed Anesthesia type and monitoring: general GIVS and standard monitoring Results Review: All pre-operative results and documents have been reviewed as part of the pre-operative evaluation. Informed Consent: The patient's anesthetic plan and its attendant risks and benefits were discussed with the patient/family/POA. Questions were solicited and answers provided to the satisfaction of the patient/family/POA.
[2023-01-15 09:38] VITALS: BP 105/70; PULSE 62; RESP 14; O2SAT 97
[2023-01-15 09:48] VITALS: BP 106/75; PULSE 60; RESP 16; O2SAT 98
[2023-01-15 09:58] VITALS: BP 107/76; PULSE 60; RESP 18; O2SAT 100
== END 2023-01-15 10:00 | disposition home or self-care (01) ==
PROVIDERS: PCP Emergency Medicine; Visit Provider Internal Medicine Gastroenterology
PROC: 0DJD8ZZ Inspection of Lower Intestinal Tract, Via Natural or Artificial Opening Endoscopic (ICD-10-PCS; CPT 45378; principal; 2023-01-15 09:30)
DX: Z12.11 Encounter for screening for malignant neoplasm of colon (principal); D12.3 Benign neoplasm of transverse colon; D12.4 Benign neoplasm of descending colon; K64.8 Other hemorrhoids; I10 Essential (primary) hypertension; E78.00 Pure hypercholesterolemia, unspecified; N40.0 Benign prostatic hyperplasia without lower urinary tract symptoms; Z86.711 Personal history of pulmonary embolism; Z79.01 Long term (current) use of anticoagulants; F12.90 Cannabis use, unspecified, uncomplicated; E66.9 Obesity, unspecified; Z68.30 Body mass index [BMI] 30.0-30.9, adult
CPT/HCPCS: 45380; 45385; 88305; J2704; J7120

== ENCOUNTER 2025-02-13 10:52 | Outpatient (CLI) | payer MEDICARE, SELFPAY ==
--- NOTE | ~2025-02-13 | CT_ITS ---
EXAMINATION: CTA chest PE protocol DATE: 02/13/2025 11:25 INDICATION: Rule out PE TECHNIQUE: Computed tomography angiography (CTA) of the chest was performed with 100 mL Omnipaque-350 intravenous contrast timed to evaluate the pulmonary arteries. Coronal maximum intensity projection 3D-reconstructions were created by the technologist. The dose-length product was 688.95 mGy-cm. COMPARISON: May 20, 2020 FINDINGS: No pulmonary emboli through the fourth order the pulmonary arterial tree. No thoracic aortic aneurysm/dissection. The lungs are clear. Central and large airways are patent. No significant pericardial effusion or bulky lymphadenopathy. No acute process seen in the visualized portions of the upper abdomen, bony thorax or extrathoracic soft tissues. IMPRESSION: No pulmonary emboli or grossly acute intrathoracic process. Reviewed, dictated and finalized at location A. TER CONSTRUCTION
[2025-02-13 11:18] LABS: Estimated Glomerular Filt Rate > 60
== END 2025-02-13 10:53 | disposition home or self-care (01) ==
PROVIDERS: PCP Emergency Medicine; Visit Provider Emergency Medicine
DX: I26.99 Other pulmonary embolism without acute cor pulmonale (principal)
CPT/HCPCS: 71275; Q9967